=== PATIENT | female | born 1995 | race Caucasian/White ===

== ENCOUNTER → 2017-09-30 | Outpatient (CLI) | payer BC, OTHER ==
[~2017-09-30] MED LIST: BARIUM SUSPENSION 105% (LIQUID POLIBAR PLUS) 240 ML/DOSE PO ONE; BARIUM SUSPENSION 60% (LIQUID EZ PAQUE) 240 ML DOSE PO ONE; DOCU-143 PO; IBUP-1780 PO; OXYC-202 PO
--- NOTE | 2017-09-30 14:16 | Diagnostic Imaging Report ---
INDICATION: Preop for gastric sleeve surgery. TECHNIQUE: Patient ingested effervescent crystals as well as thin and thick barium and imaging of the esophagus, stomach, and proximal small bowel is performed. A total of 1 minute and 51 seconds of fluoroscopy was utilized. FINDINGS: The esophagus has a smooth contour. No mass or stricture is identified. No gastroesophageal reflux or hiatal hernia is demonstrated. The stomach has a normal configuration. There is prompt emptying into the small bowel. The duodenal bulb is without deformity. IMPRESSION: Unremarkable upper GI study. Dictated by: Dictated on workstation # [id number]
== END ==
LOC: RAD 08:53
PROVIDERS: ATTEND Surgery
DX: Z01.818 Encounter for other preprocedural examination (principal); K21.9 Gastro-esophageal reflux disease without esophagitis
CPT/HCPCS: 74241